=== PATIENT | male | born 1955 | race Caucasian/White ===

== ENCOUNTER 2018-01-12 14:47 | Outpatient (CLI) | payer OTHER ==
--- NOTE | 2018-01-13 14:08 | MRI Report ---
EXAM: MRI LUMBAR SPINE WITHOUT CONTRAST EXAM DATE: 01/12/2018 04:10 PM. CLINICAL HISTORY: Low back pain. COMPARISON: None. TECHNIQUE: Multiplanar, multisequence T1-weighted and fluid-sensitive sequences of the lumbar spine f rom Pamela to S1 without contrast. Other: None. FINDINGS: Spinal Cord: The conus terminates at T12. The conus medullaris and cauda equina are unremarkable. Alignment: 13 degrees convex left scoliosis centered in L2. 3 mm retrolisthesis at L4 and L5. 7 mm an terolisthesis at L5 on S1. Bone Marrow: Five uic-bop-gaczzwx lumbar vertebral bodies are assumed. No gross fractures or bone les ions. No bone marrow edema. Disk Levels/Facets: Disk desiccation and minimal disk height loss at L3-L4 and L4-L5. Disk desiccatio n and mild disk height loss at L5-S1. T9-T10: Sagittal images only. Benign nerve root sheath cyst on the left. T10-T11: Sagittal images only. Benign nerve root sheath cyst on the right. T11-T12: Sagittal images only. Benign nerve root sheath cyst on the right. T12-L1: Sagittal images only. Possible subtle benign nerve root sheath cysts bilaterally. L1-L2: Small bilobed disk bulge. Mild bilateral facet hypertrophy. No stenosis. L2-L3: Small bilobed disk bulge. Mild bilateral facet hypertrophy. Minimal bilateral neural foramen s tenosis. L3-L4: Small broad-based disk/osteophyte complex extending into the bilateral neural foramen. Mild bi lateral facet hypertrophy. Disk minimally effaces the anterior aspect of the thecal sac. Mild to mode rate right and mild left neural foramen stenosis. L4-L5: Small broad-based disk/osteophyte complex with superimposed small central disk protrusion. Dis k mildly effaces the anterior aspect of the thecal sac. Mild bilateral facet hypertrophy. Mild bilate ral neural foramen stenosis. L5-S1: Small broad-based disk bulge. Mild bilateral facet hypertrophy. Quarwimo-rx-cqwcge right and s evere left neural foramen stenosis. Musculature: Mild fatty atrophy in the paraspinous musculature. No focal muscle edema. Other: The partially visualized retroperitoneum is unremarkable. IMPRESSION: 1. Mgyj-cj-yjkgqnvp degenerative disk and mild degenerative facet changes. 2. Grade 1 anterolisthesis at L5 on S1. Grade 1 retrolisthesis at L4 on L5. 3. Disk/osteophyte complex and facet hypertrophy at L3-L4 resulting in minimal central canal stenosis . 4. Central disk protrusion and facet hypertrophy at L4-L5 resulting in minimal central canal stenosis . 5. Varying degrees of neural foramen stenosis, most prominent at L5-S1, severe on the left and modera te to severe on the right. Comment: The following findings are so common in adults without low back pain that while we report th eir presence, they must be interpreted with caution and in the context of the clinical situation. (Re sindy Crocker et al, Spine 2001) Prevalence of findings in patients without low back pain: Disk degeneration (any evidence): 92% Disk desiccation/T2 signal loss: 83% Disk height loss: 56% Disk bulge: 64% Disk protrusion: 32% Annular tear/high intensity zone: 38% [facility] Referring Provider Line: [phone] SITE ID: [id number]
== END 2018-01-12 14:48 | disposition home or self-care (01) ==
LOC: DI 14:47
DX: M51.36 Other intervertebral disc degeneration, lumbar region (principal); M51.37 Other intervertebral disc degeneration, lumbosacral region; M47.896 Other spondylosis, lumbar region; M43.17 Spondylolisthesis, lumbosacral region; M43.16 Spondylolisthesis, lumbar region; M51.26 Other intervertebral disc displacement, lumbar region
CPT/HCPCS: 72148